=== PATIENT | female | born 1955 | race Caucasian/White ===

== ENCOUNTER 2016-12-12 13:53 | Inpatient (IN) | payer OTHER ==
[~2016-12-12] VITALS: Ht 154.9 cm; Wt 59.0 kg
[2016-12-12] MEDS ORDERED: LEVE500T9 PO (14:10)
[2016-12-12] MEDS ORDERED: PANT40TA2 PO (14:24)
[2016-12-12] MEDS ORDERED: LEVO125T8 PO (14:24)
--- NOTE | 2016-12-12 14:26 | NUR ---
DR WADSWORTH AT BEDSIDE FOR EVALUATION. SPEECH IS CLEAR, ORIENTED X 4, MOVING ALL EXTREMITIES ON COMMAND.
[2016-12-12] MEDS ORDERED: KETOROLAC TROMETHAMINE 15 MG INJ IV ONE (14:30)
[2016-12-12] MEDS ORDERED: KETOROLAC TROMETHAMINE 15 MG INJ ONE (14:44)
[2016-12-12 14:55] LABS: BASOPHILS % (AUTO) 0.5 % (0.0-2.0); EOSINOPHILS # (AUTO) 0.1 K/uL (0.0-0.7); EOSINOPHILS % (AUTO) 1.9 % (0.0-7.0); HEMATOCRIT 38.7 % (37.0-47.0); LYMPHOCYTES # (AUTO) 1.7 K/uL (0.8-4.8); LYMPHOCYTES % (AUTO) 30.1 % (20.5-51.5); MEAN CORPUSCULAR HEMOGLOBIN 27.8 uug (27.0-31.0); MEAN CORPUSCULAR HGB CONC 34 g/dL (32.0-37.0); MEAN CORPUSCULAR VOLUME 82.8 fL (81.0-99.0); MONOCYTES # (AUTO) 0.3 K/uL (0.1-1.30); MONOCYTES % (AUTO) 4.8 % (0.0-11.0); NEUTROPHILS # (AUTO) 3.6 K/uL (1.8-8.9); NEUTROPHILS % (AUTO) 62.7 % (38.5-71.5); PLATELET COUNT (AUTO) 353 K/uL (150-450); RED BLOOD CELL COUNT(AUTO) 4.67 MIL/uL (4.20-5.40); RED CELL DISTRIBUTION WIDTH 13.2 % (11.5-14.5); WHITE BLOOD COUNT (AUTO) 5.7 K/uL (4.0-11.2)
[2016-12-12 14:58] LABS: CALCIUM 9.1 mg/dL (8.5-10.1); CREATININE 0.8 mg/dL (0.6-1.3); POTASSIUM 3.8 mmol/L (3.5-5.1)
[2016-12-12] MEDS ORDERED: IOHEXOL 350 100 ML INFUS..BTL ONE (15:02)
[2016-12-12] MEDS ORDERED: IV NORMAL SALINE 250 ML IV ONE (15:02)
[2016-12-12 15:04] LABS: ALBUMIN 3.4 g/dL (3.4-5.0); BILIRUBIN,DIRECT 0.1 mg/dL (0.0-0.2); BILIRUBIN,TOTAL 0.7 mg/dL (0.2-1.0); TOTAL PROTEIN, SERUM 7.2 g/dL (6.4-8.2)
--- NOTE | 2016-12-12 15:15 | NUR ---
PT SIGNED CONSENT FOR IV CONTRAST, PLACED IN THE CHART.
--- NOTE | 2016-12-12 16:08 | NUR ---
PT BACK FROM CT. DENIES PAIN.NO SEIZURE ACTIVITY NOTED SOFAR.
--- NOTE | 2016-12-12 18:00 | NUR ---
ADMITTED FROM HOME VIA ER WITH ADMITTING DX OF SEIZURE ALERT AND ORIENTED X3, ABLE TO PARTICIPATE WITH ADMISSION ASSESSMENT. STILL C/O SLIGHT HEADACHE TOLERABLE MORE ON THE LEFT. SEEN BY DR KENYON. ROUTINE ADMISSION ASSESSMENT INITIATED
[2016-12-12 18:10] VITALS: BP 123/75
[2016-12-12] MEDS ORDERED: MORPHINE SULFATE 2 MG/1 ML DISP.SYRIN IV PRN (19:30)
[2016-12-12] MEDS ORDERED: KETOROLAC TROMETHAMINE 15 MG INJ IVP PRN (19:30)
[2016-12-12] MEDS ORDERED: ONDANSETRON 4 MG/2 ML VIAL IV PRN (19:30)
[2016-12-12] MEDS ORDERED: ZOLPIDEM 5 MG TABLET PO PRN (19:30)
[2016-12-12] MEDS ORDERED: MAGNESIUM HYDROXIDE 30 ML LIQUID UDC PO PRN (19:30)
--- NOTE | 2016-12-12 20:19 | NUR ---
Patient in bed, no SOB denies chest pain. Alert & oriented, c/o minimal headache requesting Tylenol. No signs of seizures noted. Sinus rhythm on the monitor. Vital signs are WNL.
[2016-12-12] MEDS: ACETAMINOPHEN 325 MG TABLET PO PRN (20:46)
[2016-12-12] MEDS: DOCUSATE SODIUM 100 MG CAPSULE PO SCH (20:47)
[2016-12-12 20:55] VITALS: BP 131/70
[2016-12-12] MEDS ORDERED: LEVETIRACETAM 500 MG TABLET PO SCH (22:00)
[2016-12-13 00:19] VITALS: BP 92/54
[2016-12-13] MEDS: ACETAMINOPHEN 325 MG TABLET PO PRN ×4 (04:17→22:29)
--- NOTE | 2016-12-13 04:33 | NUR ---
Patient resting in bed, still c/o mild headache. Administered Tylenol PRN as ordered and provided comfort measures to relieve headache. Seizure precaution observed at all times. Call light within reach, bed in low position. Will continue to monitor.
[2016-12-13 05:12] VITALS: BP 104/60
--- NOTE | 2016-12-13 06:45 | NUR ---
Patient refused to take 0700 scheduled medications Protonix and Synthroid. Patient stated "I usually take those medications together with Keppra around 9am or 10am". Endorsed schedule time change of medications to the AM shift RN.
[2016-12-13] MEDS ORDERED: PANTOPRAZOLE SODIUM 40 MG TABLET.DR PO SCH ×2 (07:00→09:00)
[2016-12-13] MEDS ORDERED: LEVOTHYROXINE SODIUM 125 MCG TABLET PO SCH ×2 (07:00→10:00)
--- NOTE | 2016-12-13 07:05 | NUR ---
PATIENT RECEIVED IN ROOM RESTING WITH EYES CLOSED. SR ON DIRECTOR OF CLINICAL APPLICATIONS. RESPIRATIONS EVEN AND UNLABORED. FALL PRECAUTIONS IN PLACE.
[2016-12-13 09:14] LABS: CALCIUM 8.5 mg/dL (8.5-10.1); MAGNESIUM 2.3 mg/dL (1.8-2.4); PHOSPHOROUS 4.2 mg/dL (2.5-4.9); POTASSIUM 3.9 mmol/L (3.5-5.1)
[2016-12-13 09:23] LABS: THYROID STIMULATING HORMONE 5.153 mIU/mL (0.358-3.740)
--- NOTE | 2016-12-13 09:40 | NUR ---
PATIENT REQUESTED SYNTHROID TO BE GIVEN AT THIS TIME. STATES SHE IS PARANOIC AND SHE NEEDS TO SEE THE MEDICATIONS NAME AND DOSE SO SHE CAN TRUST WE ARE GIVING HER THE RIGHT MEDICATION. STATES SHE WANTS HER KEPPRA AND PROTONIX EXACTLY 30 MIN AFTER SYNTHROID.
[2016-12-13] MEDS: LEVOTHYROXINE SODIUM 125 MCG TABLET PO SCH (09:45)
[2016-12-13 09:58] LABS: BASOPHILS # (AUTO) 0.1 K/uL (0.0-0.2); BASOPHILS % (AUTO) 1.2 % (0.0-2.0); EOSINOPHILS # (AUTO) 0.2 K/uL (0.0-0.7); EOSINOPHILS % (AUTO) 4.2 % (0.0-7.0); HEMATOCRIT 39.3 % (37.0-47.0); LYMPHOCYTES # (AUTO) 2.3 K/uL (0.8-4.8); LYMPHOCYTES % (AUTO) 45.2 % (20.5-51.5); MEAN CORPUSCULAR HEMOGLOBIN 27.8 uug (27.0-31.0); MEAN CORPUSCULAR HGB CONC 33 g/dL (32.0-37.0); MEAN CORPUSCULAR VOLUME 83.9 fL (81.0-99.0); MONOCYTES # (AUTO) 0.3 K/uL (0.1-1.30); MONOCYTES % (AUTO) 5.4 % (0.0-11.0); NEUTROPHILS # (AUTO) 2.2 K/uL (1.8-8.9); PLATELET COUNT (AUTO) 347 K/uL (150-450); RED BLOOD CELL COUNT(AUTO) 4.68 MIL/uL (4.20-5.40); RED CELL DISTRIBUTION WIDTH 13.5 % (11.5-14.5); WHITE BLOOD COUNT (AUTO) 5.1 K/uL (4.0-11.2)
[2016-12-13] MEDS ORDERED: LEVETIRACETAM 500 MG TABLET PO SCH (10:00)
[2016-12-13] MEDS: PANTOPRAZOLE SODIUM 40 MG TABLET.DR PO SCH (10:14)
[2016-12-13 11:42] VITALS: BP 112/66
--- NOTE | 2016-12-13 11:50 | NUR ---
PATIENT IS HYPERVERBAL, STATES SHE DOES NOT WANT TO BE ALONE AND THAT WE ARE PROVIDING A GOOD CARE THAT SHE FEELS SAFE AND SECURE HERE.
--- NOTE | 2016-12-13 13:00 | NUR ---
PATIENT SEEN BY DR. FERNANDEZ.
[2016-12-13 15:25] VITALS: BP 113/71
--- NOTE | 2016-12-13 17:50 | NUR ---
PATIENT IS CRYING AND STATES FEELING SCARED THAT WE NEED TO CHECK ON HER TO MAKE SURE SHE IS OK. VSS. TEACHING AND REDIRECTION DONE.
[2016-12-13] MEDS: OXCARBAZEPINE 300 MG TABLET PO SCH (20:01)
--- NOTE | 2016-12-13 20:01 | NUR ---
SITTING ON BED ABLE TO MAKE NEEDS KNOWN. EXPLAINED NEW MEDICATION PRESCRIBED TRILEPTAL. STATED: "I THINK I WAS MISUNDERSTOOD EARLIER. WHAT I MEANT TO SAY IS IM SCARED WITH MY SITUATION RIGHT NOW COZ EARLIER I BLANKED OUT, ITS NOT THAT IM SCARED THAT IM ALONE. IM JUST SCARED ABOUT MY SITUATION RIGHT NOW THAT HAVING SEIZURES IS UNCONTROLLABLE THAT IT CAN HAPPEN ANYTIME. I DONT WANT TO TAKE THAT FOR NOW." PROVIDED REASSURANCE. NEEDS ATTENDED. CALL LIGHT WITHIN REACH. WILL CONTINUE TO MONITOR
[2016-12-13 20:24] VITALS: BP 121/77
[2016-12-13] MEDS: DOCUSATE SODIUM 100 MG CAPSULE PO SCH (21:00)
[2016-12-13] MEDS: LEVETIRACETAM 500 MG TABLET PO SCH (22:00)
--- NOTE | 2016-12-13 22:00 | NUR ---
STATED SHE NOW FEELS WEIRD AGAIN. " I FEEL WEIRD AGAIN, HOW I WISH I CAN EXPLAIN IT TO YOU. BUT IM GLAD IM HERE CAUSE I FEEL SAFE." WILL CONTINUE TO MONITOR
[2016-12-14 05:48] VITALS: BP 110/60
--- NOTE | 2016-12-14 06:13 | NUR ---
STATED SHE WAS ABLE TO FINALLY SLEEP LAST NIGHT. ONCE AGAIN EXPLAINED THE REASON ABOUT HER NEW MEDICATION TRILEPTAL BUT STATED THAT SHE WONT TAKE NEW MEDICATIONS UNTIL SHE SPEAKS WITH THE DOCTOR. WILL ENDORSE TO NEXT SHIFT. ALSO STATED THAT SHE DOESNT WANT TO TAKE HER SYNTHROID ORDERED, STATED SHE USUALLY TAKES IT AT 0930, NEEDS ATTENDED. CALL LIGHT WITHIN REACH
[2016-12-14] MEDS: LEVOTHYROXINE SODIUM 125 MCG TABLET PO SCH (07:00)
--- NOTE | 2016-12-14 07:31 | NUR ---
PATIENT RECEIVED IN ROOM RESTING WITH EYES CLOSED IN NO ACUTE DISTRESS. RESPIRATIONS EVEN AND UNLABORED. FALL PRECAUTIONS IN PLACE.
[2016-12-14] MEDS: PANTOPRAZOLE SODIUM 40 MG TABLET.DR PO SCH (09:52)
[2016-12-14] MEDS: OXCARBAZEPINE 300 MG TABLET PO SCH ×2 (09:52→17:27)
[2016-12-14] MEDS: LEVETIRACETAM 500 MG TABLET PO SCH ×2 (09:52→21:45)
[2016-12-14] MEDS: ACETAMINOPHEN 325 MG TABLET PO PRN ×2 (10:02→22:32)
[2016-12-14 11:50] VITALS: BP 115/65
[2016-12-14 16:00] VITALS: BP_SYST 110; BP_SYST 129; BP_DIAS 66; BP_DIAS 72
--- NOTE | 2016-12-14 19:30 | NUR ---
SITTING ON BED COMFORTABLY, NO ACUTE DISTRESS NOTED. ABLE TO MAKE NEEDS KNOWN. STATED SHE DIDNT HAVE ANY BM FOR FEW DAYS, CONVINCED TO TAKE COLACE AT 2100 ORDERED, AGREED. WILL OFFER PRUNE JUICE WELL. NEEDS ATTENDED. CALL LIGHT WITHIN REACH. WILL CONTINUE TO MONITOR
[2016-12-14] MEDS: DOCUSATE SODIUM 100 MG CAPSULE PO SCH (20:57)
[2016-12-14] MEDS: ATORVASTATIN 20 MG TABLET PO SCH (20:57)
[2016-12-14 21:40] VITALS: BP 113/55
--- NOTE | 2016-12-14 22:29 | NUR ---
REQUESTED TO WALK AROUND THE UNIT TO HELP HER SLEEP, ASSISTED WITH STAFF.
[2016-12-15 05:17] VITALS: BP 109/52
--- NOTE | 2016-12-15 06:14 | NUR ---
SLEPT INTERMITTENTLY DURING THE SHIFT. NO ACUTE DISTRESS NOTED. STILL PREFERS TO TAKE SYNTHROID AT 0930, WILL TRY TO CALL PHARMACY IN REGARDS TO PATIENT'S REQUEST. ALL DUE MEDS GIVEN ORDERED. KEPT COMFORTABLE AT ALL TIMES. NEEDS ATTENDED. CALL LIGHT WITHIN REACH
--- NOTE | 2016-12-15 07:00 | NUR ---
pt refuses to take Synthroid at 0700. Let the pharmacist know. Pt is laying in bed comfortably. No s/s of respiratory distress noted. No pain noted. Iv intact/patent. All safety needs are met. Will continue to monitor.
[2016-12-15 08:51] LABS: ALBUMIN 3.1 g/dL (3.4-5.0); BILIRUBIN,TOTAL 0.4 mg/dL (0.2-1.0); CALCIUM 8.5 mg/dL (8.5-10.1); CREATININE 0.9 mg/dL (0.6-1.3); PHOSPHOROUS 3.9 mg/dL (2.5-4.9); TOTAL PROTEIN, SERUM 6.5 g/dL (6.4-8.2)
[2016-12-15] MEDS: LEVOTHYROXINE SODIUM 125 MCG TABLET PO SCH (09:32)
[2016-12-15] MEDS: PANTOPRAZOLE SODIUM 40 MG TABLET.DR PO SCH (10:14)
[2016-12-15] MEDS: LEVETIRACETAM 500 MG TABLET PO SCH ×2 (10:14→22:10)
[2016-12-15] MEDS: OXCARBAZEPINE 300 MG TABLET PO SCH ×2 (10:14→17:01)
[2016-12-15] MEDS: ACETAMINOPHEN 325 MG TABLET PO PRN ×3 (10:15→23:36)
[2016-12-15 11:01] LABS: WHITE BLOOD COUNT (AUTO) 5.4 K/uL (4.0-11.2)
[2016-12-15 11:02] LABS: HEMATOCRIT 37.2 % (37.0-47.0); HEMOGLOBIN 12.3 g/dL (12.0-16.0); LYMPHOCYTES % (AUTO) 36.7 % (20.5-51.5); MEAN CORPUSCULAR HEMOGLOBIN 27.8 uug (27.0-31.0); MEAN CORPUSCULAR HGB CONC 33 g/dL (32.0-37.0); MEAN CORPUSCULAR VOLUME 84.1 fL (81.0-99.0); NEUTROPHILS % (AUTO) 51.8 % (38.5-71.5); PLATELET COUNT (AUTO) 330 K/uL (150-450); RED BLOOD CELL COUNT(AUTO) 4.42 MIL/uL (4.20-5.40); RED CELL DISTRIBUTION WIDTH 14.6 % (11.5-14.5)
[2016-12-15 11:03] LABS: BASOPHILS % (AUTO) 0.8 % (0.0-2.0); EOSINOPHILS # (AUTO) 0.2 K/uL (0.0-0.7); EOSINOPHILS % (AUTO) 3.3 % (0.0-7.0); MONOCYTES # (AUTO) 0.4 K/uL (0.1-1.30); MONOCYTES % (AUTO) 7.4 % (0.0-11.0); NEUTROPHILS # (AUTO) 2.8 K/uL (1.8-8.9)
[2016-12-15 12:00] VITALS: BP 117/67
--- NOTE | 2016-12-15 14:23 | NUR ---
PT IS ANXIOUS STATES THAT SHE DOES NOT WANT TO BE DISCHARGED BECAUSE SHE FEELS DIZZY. ADVISED THE PT NOT TO AMBULATE W/O ASSISTANCE AND CALL THE NURSE ONCE FEELING LIKE GOING TO BATHROOM. BED ALARM IS ON, CALL LIGHT WITHIN PT'S REACH. PATIENT SPOKE TO C/M, DR. KENYON, CHARGE NURSE. PATIENT STATES THAT SHE FELT "NAUSEOUS AND WAS VOMITING ALL NIGHT. ONCE ASKED IF PT WOULD LIKE TO RECEIVE MEDICATION FOR NAUSEA, PT REFUSED.
--- NOTE | 2016-12-15 14:27 | NUR ---
[T IS REMINDED MULTIPLE TIMES TO CALL THE NURSE ONCE WANTING TO AMBULATE. Addendum: 12/15/16 at 1431 by BREEZY CAMPOS RN *PATIENT
[2016-12-15 16:00] VITALS: BP 116/66
--- NOTE | 2016-12-15 17:20 | NUR ---
The patient refused to be discharged this morning back home, stating that she is unable to ambulate. PT and OT were asked and according to them, the patient is fully independent and functional and she could be discharged back home. The patient stated that that was yesterday and she suddenly can not walk today. Informed her that all of her labs were good and we can not justify her staying in an acute setting. Offered to call her sister but she refused. Asked if she would like to see a psychiatrist but she was very offended. Offered her a nursing facility but she initially refused. She called this machine shorthand reporter back later and stated that she would like to go to a nursing facility. Faxed her information to [facility] and [facility] because they have an [place] [facility] contract. [facility] do not have any female beds available. Susanne from [facility] confirmed that they will admit the patient under intermediate care today. The patient will be discharged to [facility] [ ; [address] [place] [address]] via [facility] [ ].
--- NOTE | 2016-12-15 19:24 | NUR ---
PT IS LAYING IN BED COMFORTABLY. NO S/S OF RESPIRATORY DISTRESS NOTED. NO PAIN NOTED. IV INTACT/PATENT. ALL SAFETY NEEDS ARE MET. DRESSING INTACT. PT IS ENCOURAGED TO USE INCENTIVE SPIROMETER, ADVISED NOC NURSE ABOUT 1/2 HR SITZ BATH TID ORDER. NO NAUSEA PRESENT. V/S WNL. Addendum: 12/15/16 at 1929 by BREEZY CAMPOS RN NOTE IS FOR THE WRONG PATIENT.
--- NOTE | 2016-12-15 19:29 | NUR ---
PT IS SITTING IN BED COMFORTABLY. NO DIZZINESS IS NOTED. NO S/S OF RESPIRATORY DISTRESS NOTED. NO PAIN NOTED. ALL SAFETY NEEDS ARE MET. PT IS ADVISED TO CALL THE NURSE IN CASE OF AMBULATING. THE BED ALARM IS ON. CALLBELL IS WITHIN REACH./
--- NOTE | 2016-12-15 19:53 | NUR ---
PATIENT SITTING ON BED, C/O OF PAIN IN THE HANDS ON HEADACHE ON THE LEFT. SHE STATED SHE ALREADY TOOK TYLENOL AND SHE DOESNOT WANT TO TAKE ANY PAIN MEDICATION AT THIS TIME. SHE STATED SHE IS DOING EXERCISE WITH SOFT BALL WHICH HELPS MILDLY. NO EPISODES OF SEIZURE NOTED. NO C/O OF DIZZINESS AT THIS TIME. BED ALARM ON, CALL LIGHT IN REACH. RENMINDED HER TO USE CALL LIGHT IN NEED
[2016-12-15 20:00] VITALS: BP 110/63
[2016-12-15] MEDS: ATORVASTATIN 20 MG TABLET PO SCH (21:16)
[2016-12-15] MEDS: DOCUSATE SODIUM 100 MG CAPSULE PO SCH (21:16)
--- NOTE | 2016-12-15 23:40 | NUR ---
PATIENT BROUGHT IN FROM ER VIA STRETCHER, ADMITTED TO TELE WITH DX UNCONTROLLED DIABETES. PATIENT IN STABLE CONDITION . NO C/O OF PAIN OR BLURRED VISION NOTED AT THIS TIME. IV FLUID INFUSING ORDERED. WILL CONTINUE TO MONITOR. Addendum: 12/16/16 at 0151 by DOMENICA BRUCE RN PLEASE DISREGARD ABOVE DOCUMENTATION . WRONG PATIENT
[2016-12-16 04:25] VITALS: BP 113/62
--- NOTE | 2016-12-16 05:36 | NUR ---
PATIENT SLEEPING COMFORTABLE . TYLENOL GIVEN DURING THE SHIFT ON C/O HEADACHE. NO C/O DIZZINESS . PATIENT MAY D/C TODAY. SAFETY PRECAUTIONS OBSERVED. NO EPISODES OF SEIZURE. SEIZURE PRECAUTIONS OOBSERVED. CALL LIGHT IN REACH
[2016-12-16] MEDS: LEVOTHYROXINE SODIUM 125 MCG TABLET PO SCH (08:44)
[2016-12-16] MEDS ORDERED: MULTIVITAMINS,THERAPEUTIC TABLET PO SCH (09:00)
[2016-12-16] MEDS: OXCARBAZEPINE 300 MG TABLET PO SCH (09:22)
[2016-12-16] MEDS: LEVETIRACETAM 500 MG TABLET PO SCH (09:22)
[2016-12-16] MEDS: PANTOPRAZOLE SODIUM 40 MG TABLET.DR PO SCH (09:22)
[2016-12-16 11:32] VITALS: BP 124/66
[2016-12-16] MEDS ORDERED: IBUP-1481 PO (12:43)
[2016-12-16] MEDS ORDERED: MAGN400O4 PO (12:43)
[2016-12-16] MEDS ORDERED: ATOR20TA PO (12:43)
[2016-12-16] MEDS ORDERED: MULT-24 PO (12:43)
[2016-12-16] MEDS ORDERED: LEVE500T9 PO (12:43)
[2016-12-16] MEDS ORDERED: OXCA300T4 PO (12:43)
[2016-12-16] MEDS ORDERED: Docusate Sodium PO (12:43)
[2016-12-16] MEDS ORDERED: Zolpidem Tartrate PO (12:43)
[2016-12-16] MEDS ORDERED: Acetaminophen PO (12:43)
--- NOTE | 2016-12-16 14:41 | NUR ---
ALL HOME INSTRUCTIONS REVIEWED WITH PT. DR. KENYON IN EARLIER TO DISCUSS DISCHARGE, PLAN OF CARE AND REHAB WITH PT. IV D/C'D. AWAITING AMBULANCE.
[2016-12-16 15:30] VITALS: BP 117/69
--- NOTE | 2016-12-16 16:00 | NUR ---
REPORT CALLED TO [facility]--JOHNATHAN Coleman. DISCHARGED TO AMBULANCE ATTENDENTS/[facility].
== END 2016-12-16 16:10 | DRG 54 ==
LOC: ER 13:55 → TELE 17:51 → MED 12-13 19:27
PROVIDERS: ADMIT Internal Medicine; ATTEND Internal Medicine
DX: G43.909 Migraine, unspecified, not intractable, without status migrainosus (principal); I10 Essential (primary) hypertension; E78.5 Hyperlipidemia, unspecified; T42.6X5A Adverse effect of other antiepileptic and sedative-hypnotic drugs, initial encounter; Y92.009 Unspecified place in unspecified non-institutional (private) residence as the place of occurrence of the external cause; G40.909 Epilepsy, unspecified, not intractable, without status epilepticus; E03.9 Hypothyroidism, unspecified; F41.9 Anxiety disorder, unspecified; K21.9 Gastro-esophageal reflux disease without esophagitis; F32.9 Major depressive disorder, single episode, unspecified; R53.1 Weakness; G89.29 Other chronic pain; Z79.899 Other long term (current) drug therapy; Z82.3 Family history of stroke
CPT/HCPCS: 36415; 70030-TC; 70496; 71010; 83735; 84100; 84443; 85025; 85730; 93005; 97001; 97003; A4663; J1885; J7050; Q9967

== ENCOUNTER 2016-12-25 10:18 | Inpatient (IN) | payer OTHER ==
[~2016-12-25] VITALS: Ht 149.9 cm; Wt 52.2 kg
[~2016-12-25 10:18] MED LIST: ATOR20TA PO; Acetaminophen PO; Docusate Sodium PO; IBUP-1481 PO; LEVE500T9 PO; LEVO125T8 PO; MAGN400O4 PO; MULT-24 PO; OXCA300T4 PO; PANT40TA2 PO; Zolpidem Tartrate PO
--- NOTE | 2016-12-25 10:35 | NUR ---
PT WAS RECENTLY DISCHARGE FROM INPATIENT. PT STATES THAT SHE HAS HAD HER EPILEPSY MEDICATION CHANGED FROM KEPPRA TO TRILEPTAL. CURRENTLY TAKING TRILEPTAL X 1 WEEK, PT STATES OF FEELING +N/V SINCE LAST NIGHT, GENERALIZED WEAKNESS, DOWD. TOOK MORNING DOSE OF TRILEPTAL ORDERED BY MD. WCTM PT AT THIS TIME. WAITING FOR MD TO PERFORM MSE
--- NOTE | 2016-12-25 10:36 | NUR ---
AT BEDSIDE PERFORMING MSE
--- NOTE | 2016-12-25 10:56 | NUR ---
UNABLE TO PERFORM EKG AT THIS TIME. PT REQUEST TO SPEAK TO MD. BRADSHAW AWARE
[2016-12-25] MEDS ORDERED: ONDANSETRON 4 MG/2 ML VIAL IV ONE (11:00)
[2016-12-25] MEDS ORDERED: IV NORMAL SALINE 500 ML BAG IV ONE (11:00)
[2016-12-25] MEDS ORDERED: ONDANSETRON 4 MG/2 ML VIAL ONE (11:01)
[2016-12-25] MEDS ORDERED: NITROGLYCERIN 0.4 MG/TAB BOTTLE SL ONE ×2 (11:15→11:45)
[2016-12-25] MEDS ORDERED: CLOPIDOGREL 75 MG TABLET PO ONE (11:15)
[2016-12-25] MEDS ORDERED: CLOPIDOGREL 75 MG TABLET ONE (11:45)
--- NOTE | 2016-12-25 11:52 | NUR ---
PT REFUSED TO TAKE NITRO UNLESS MD SPEAKS TO PT. MADE AWARE
--- NOTE | 2016-12-25 12:04 | NUR ---
CXR pending,nurse will call once done with the procedure.
[2016-12-25 12:31] LABS: CALCIUM 8.9 mg/dL (8.5-10.1); CREATININE 0.9 mg/dL (0.6-1.3); POTASSIUM 3.9 mmol/L (3.5-5.1)
[2016-12-25 12:38] LABS: BASOPHILS # (AUTO) 0.1 K/uL (0.0-0.2); BASOPHILS % (AUTO) 1.8 % (0.0-2.0); EOSINOPHILS # (AUTO) 0.3 K/uL (0.0-0.7); EOSINOPHILS % (AUTO) 4.1 % (0.0-7.0); HEMATOCRIT 42.2 % (37.0-47.0); HEMOGLOBIN 14.1 g/dL (12.0-16.0); LYMPHOCYTES # (AUTO) 1.6 K/uL (0.8-4.8); MEAN CORPUSCULAR HEMOGLOBIN 27.9 uug (27.0-31.0); MEAN CORPUSCULAR HGB CONC 33 g/dL (32.0-37.0); MEAN CORPUSCULAR VOLUME 83.6 fL (81.0-99.0); MONOCYTES # (AUTO) 0.4 K/uL (0.1-1.30); MONOCYTES % (AUTO) 6.9 % (0.0-11.0); NEUTROPHILS # (AUTO) 3.7 K/uL (1.8-8.9); NEUTROPHILS % (AUTO) 61.2 % (38.5-71.5); PLATELET COUNT (AUTO) 331 K/uL (150-450); RED CELL DISTRIBUTION WIDTH 13.5 % (11.5-14.5); WHITE BLOOD COUNT (AUTO) 6.1 K/uL (4.0-11.2)
[2016-12-25 12:40] LABS: RED BLOOD CELL COUNT(AUTO) 5.05 MIL/uL (4.20-5.40)
[2016-12-25 12:44] LABS: ALBUMIN 3.8 g/dL (3.4-5.0); BILIRUBIN,DIRECT 0.1 mg/dL (0.0-0.2); BILIRUBIN,TOTAL 0.5 mg/dL (0.2-1.0); TOTAL PROTEIN, SERUM 8.2 g/dL (6.4-8.2)
[2016-12-25] MEDS ORDERED: MECLIZINE HCL 25 MG TABLET ONE (12:54)
--- NOTE | 2016-12-25 12:55 | NUR ---
PT IS HIGHLY SOMATIC, CONSTANT RE-DIRECTION, ENCOURAGEMENT, SUPPORT GIVEN. PT IS HYPERVERBAL, SLIGHTLY ANXIOUS AT THIS TIME. WCTM PT. WAITING FOR FURTHER PLAN OF CARE
[2016-12-25] MEDS ORDERED: MECLIZINE HCL 25 MG TABLET PO ONE (13:00)
--- NOTE | 2016-12-25 14:40 | NUR ---
REPORT GIVEN TO HERBER, AWARE OF PT'S CURRENT CONDITION. WILL CONTINUE PLAN OF CARE
--- NOTE | 2016-12-25 15:15 | NUR ---
Received this 61 yo female from ER per win, with the chief complaint/diagnosis of chest pain. Transferred to bed comfortably. Routine admission care rendered. Saline lock to right thumb g 20 intact. Awake, alert, oriented x 4. Limited movement of RUE, generally weak, dizzy. Placed on tele, SR. Dr. Payton informed of admission.
[2016-12-25 15:36] VITALS: BP 130/75
[2016-12-25] MEDS ORDERED: OXCA300T4 PO (16:27)
[2016-12-25] MEDS ORDERED: LEVE250T2 PO (16:27)
[2016-12-25] MEDS ORDERED: Medication Not On Formulary EA ([Acetaminophen] (Tylenol) 650 MG) PO PRN (17:00)
[2016-12-25] MEDS ORDERED: OXCARBAZEPINE 300 MG TABLET PO SCH ×2 (17:00→17:45)
[2016-12-25] MEDS ORDERED: LEVETIRACETAM 250 MG TABLET PO SCH (17:00)
[2016-12-25] MEDS ORDERED: ACETAMINOPHEN 325 MG TABLET PO PRN (17:15)
[2016-12-25] MEDS: ACETAMINOPHEN 325 MG TABLET PO PRN ×2 (17:51→23:37)
--- NOTE | 2016-12-25 18:50 | NUR ---
Not in distress, kept comfortable.
[2016-12-25 20:00] VITALS: BP 119/71
--- NOTE | 2016-12-25 20:00 | NUR ---
RECEIVED PATIENT AWAKE IN BED. A/O X4. DENIES PAIN OR DISCOMFORT AT THIS TIME. NO RESP. DISTRESS NOTED. HEPLOCK INTACT AND NOTED TO RIGHT THUMB #20 GAUGE. ON TELE SR. CALL LIGHT IN REACH. ALL NEEDS ATTENDED. WILL CONTINUE TO MONITOR.
[2016-12-25] MEDS: DOCUSATE SODIUM 100 MG CAPSULE PO SCH (20:58)
[2016-12-25] MEDS: LEVETIRACETAM 250 MG TABLET PO SCH ×2 (20:59→21:00)
[2016-12-25] MEDS: ATORVASTATIN 20 MG TABLET PO SCH (20:59)
[2016-12-25] MEDS: OXCARBAZEPINE 300 MG TABLET PO SCH (20:59)
[2016-12-25] MEDS ORDERED: Medication Not On Formulary EA ([Docusate Sodium] (Colace) 200 MG) PO SCH (21:00)
[2016-12-25] MEDS: ONDANSETRON 4 MG/2 ML VIAL IV PRN (23:36)
[2016-12-26 00:05] VITALS: BP 121/60
[2016-12-26 04:00] VITALS: BP 114/52
--- NOTE | 2016-12-26 06:11 | NUR ---
PATIENT ASLEEP IN BED. VSS. ON TELE SR. NO S/S OF ANY PAIN OR DISCOMFORT. NO RESP. DISTRESS NOTED. BED ALARM ON FOR SAFETY. CALL LIGHT IN REACH. ALL NEEDS ATTENDED. WILL CONTINUE TO MONITOR.
[2016-12-26] MEDS: LEVOTHYROXINE SODIUM 125 MCG TABLET PO SCH (08:38)
[2016-12-26 08:46] LABS: BASOPHILS % (AUTO) 0.8 % (0.0-2.0); EOSINOPHILS # (AUTO) 0.2 K/uL (0.0-0.7); EOSINOPHILS % (AUTO) 5.4 % (0.0-7.0); HEMATOCRIT 38.1 % (37.0-47.0); HEMOGLOBIN 12.6 g/dL (12.0-16.0); LYMPHOCYTES # (AUTO) 1.3 K/uL (0.8-4.8); LYMPHOCYTES % (AUTO) 29.2 % (20.5-51.5); MEAN CORPUSCULAR HEMOGLOBIN 27.8 uug (27.0-31.0); MEAN CORPUSCULAR HGB CONC 33 g/dL (32.0-37.0); MEAN CORPUSCULAR VOLUME 83.8 fL (81.0-99.0); MONOCYTES # (AUTO) 0.4 K/uL (0.1-1.30); MONOCYTES % (AUTO) 8.7 % (0.0-11.0); NEUTROPHILS # (AUTO) 2.6 K/uL (1.8-8.9); NEUTROPHILS % (AUTO) 55.9 % (38.5-71.5); PLATELET COUNT (AUTO) 325 K/uL (150-450); RED BLOOD CELL COUNT(AUTO) 4.54 MIL/uL (4.20-5.40); RED CELL DISTRIBUTION WIDTH 13.8 % (11.5-14.5); WHITE BLOOD COUNT (AUTO) 4.5 K/uL (4.0-11.2)
[2016-12-26] MEDS: MULTIVITAMINS,THERAPEUTIC TABLET PO SCH (09:15)
[2016-12-26] MEDS: PANTOPRAZOLE SODIUM 40 MG TABLET.DR PO SCH (09:16)
[2016-12-26] MEDS: OXCARBAZEPINE 300 MG TABLET PO SCH ×2 (09:16→20:42)
[2016-12-26] MEDS: ACETAMINOPHEN 325 MG TABLET PO PRN ×3 (09:17→23:10)
[2016-12-26] MEDS: LEVETIRACETAM 250 MG TABLET PO SCH (09:17)
[2016-12-26] MEDS: ONDANSETRON 4 MG/2 ML VIAL IV PRN (09:18)
[2016-12-26 09:30] LABS: BILIRUBIN,TOTAL 0.6 mg/dL (0.2-1.0); CALCIUM 8.6 mg/dL (8.5-10.1); PHOSPHOROUS 3.8 mg/dL (2.5-4.9); POTASSIUM 3.9 mmol/L (3.5-5.1)
[2016-12-26 09:31] LABS: ALBUMIN 3.3 g/dL (3.4-5.0); MAGNESIUM 1.8 mg/dL (1.8-2.4); TOTAL PROTEIN, SERUM 6.8 g/dL (6.4-8.2)
[2016-12-26] MEDS ORDERED: IV NS 1000 ML 1,000 ML IV PRN (09:45)
[2016-12-26 12:00] VITALS: BP 107/68
[2016-12-26 15:40] VITALS: BP 102/59
--- NOTE | 2016-12-26 17:23 | NUR ---
PT AWAKE IN BED, NO ACUTE DISTRESS. DINNER AT BEDSIDE, IV INTACT AND INFUSING WELL. PT VERY ANXIOUS AND WORRIED ABOUT POSSIBLE DISCHARGE EVEN THOUGH CARDIO CONSULT IS PENDING. PT EDUCATED ON RELAXATION TECHNIQUES. ALL SAFETY AND COMFORT MEASURES MAINTAINED THROUGHOUT SHIFT, CALL LIGHT IN REACH
--- NOTE | 2016-12-26 19:20 | NUR ---
Received report from ANGELA Lara. Pt currently awake and alert, conversational and follows commands. Denies SOB and chest pain, all labs 2Decho are normal except Na which is 129mg/dl.Pt is ambulatory and can go to restroom by herself, with minimal supervision at times.
--- NOTE | 2016-12-26 20:30 | NUR ---
Spend a good amount of time with the pt. Pt likes to converse. Dr. Spring (window maker) came in and speak to the pt.
[2016-12-26] MEDS: ATORVASTATIN 20 MG TABLET PO SCH (20:42)
[2016-12-26] MEDS: DOCUSATE SODIUM 100 MG CAPSULE PO SCH (20:42)
[2016-12-26 21:22] VITALS: BP 100/55
--- NOTE | 2016-12-26 22:00 | NUR ---
Pt called multiple times and wanting to speak to someone, feels comforted every after the end of conversation. Dr. Spring discontinued her IV fluid, pt was pleased about it.
--- NOTE | 2016-12-26 23:30 | NUR ---
Tylenol 650mg/po given per pt's request for sleep, denies any pain.
--- NOTE | 2016-12-27 02:00 | NUR ---
Pt resting comfortably. Pt gets easily awakened with simple noise.
--- NOTE | 2016-12-27 05:00 | NUR ---
Resting comfortably.Breathing normally.
[2016-12-27 06:41] VITALS: BP 123/68
--- NOTE | 2016-12-27 07:20 | NUR ---
Report to ANGELA Dempsey. Pt remained asleep.
--- NOTE | 2016-12-27 08:00 | NUR ---
AWAKE ALERT NO SOB OR PAIN AT THIS TIME REFUSED TO EAT STATE LATER BUT TAKE PO MEDICINE ON FALL AND SEIZURE AND FALL PRECAUTION CALL BUSCH IN REACH AND BED ALARM ON
[2016-12-27] MEDS: MULTIVITAMINS,THERAPEUTIC TABLET PO SCH (09:00)
[2016-12-27] MEDS: LEVOTHYROXINE SODIUM 125 MCG TABLET PO SCH (09:01)
[2016-12-27 09:29] LABS: ALBUMIN 3.5 g/dL (3.4-5.0); BILIRUBIN,TOTAL 0.4 mg/dL (0.2-1.0); CALCIUM 8.7 mg/dL (8.5-10.1); MAGNESIUM 1.9 mg/dL (1.8-2.4); PHOSPHOROUS 3.5 mg/dL (2.5-4.9); POTASSIUM 3.8 mmol/L (3.5-5.1); TOTAL PROTEIN, SERUM 7.2 g/dL (6.4-8.2)
[2016-12-27] MEDS: OXCARBAZEPINE 300 MG TABLET PO SCH (09:40)
[2016-12-27] MEDS: PANTOPRAZOLE SODIUM 40 MG TABLET.DR PO SCH (09:40)
[2016-12-27] MEDS: LEVETIRACETAM 250 MG TABLET PO SCH (09:41)
[2016-12-27 09:52] LABS: BASOPHILS % (AUTO) 0.2 % (0.0-2.0); EOSINOPHILS # (AUTO) 0.2 K/uL (0.0-0.7); EOSINOPHILS % (AUTO) 4.8 % (0.0-7.0); HEMATOCRIT 39.7 % (37.0-47.0); HEMOGLOBIN 13.4 g/dL (12.0-16.0); LYMPHOCYTES # (AUTO) 1.2 K/uL (0.8-4.8); LYMPHOCYTES % (AUTO) 26.3 % (20.5-51.5); MEAN CORPUSCULAR HGB CONC 34 g/dL (32.0-37.0); MEAN CORPUSCULAR VOLUME 83.2 fL (81.0-99.0); MONOCYTES # (AUTO) 0.4 K/uL (0.1-1.30); MONOCYTES % (AUTO) 8.9 % (0.0-11.0); NEUTROPHILS # (AUTO) 2.8 K/uL (1.8-8.9); NEUTROPHILS % (AUTO) 59.8 % (38.5-71.5); PLATELET COUNT (AUTO) 311 K/uL (150-450); RED BLOOD CELL COUNT(AUTO) 4.77 MIL/uL (4.20-5.40); RED CELL DISTRIBUTION WIDTH 13.9 % (11.5-14.5); WHITE BLOOD COUNT (AUTO) 4.6 K/uL (4.0-11.2)
--- NOTE | 2016-12-27 11:00 | NUR ---
D/C HOME WITH HOME HEALTH NURSE AND PT WILL F/U ,NEED TO CALL PMD AND CONTINUE HOME MEDICINE INSTRUCTION EXPLAINED TO [PATIENT VERBALIZES UNDERSTAND BUT STATE SHE DOES NOT READY TO GO HOME YET STATE WILL GO TO ER AGAIN AFTER D/C TODAY LINOLEUM LAYER HELPER FOR Rojelio DAVIS A , CHARGE NURSE LUKE AND CURB BUILDER MELVI WAS INFORM OF SITUATION HL WAS DISCONTINUE PRIOR D/C TODAY
[2016-12-27 11:10] VITALS: BP 116/70
--- NOTE | 2016-12-27 12:00 | NUR ---
TAKE PATIENT DOWN VIA W/C CONDITION STABLE REFUSED TO SIGNS D/C SHEET AND PHAMACY FOR HOME MED INSTRUCTION
== END 2016-12-27 14:20 | disposition home health service (06) | DRG 203 ==
LOC: ER 10:19 → TELE 14:39 → MED 12-26 20:53
PROVIDERS: ADMIT Internal Medicine; ATTEND Internal Medicine
DX: M94.0 Chondrocostal junction syndrome [Tietze] (principal); E22.2 Syndrome of inappropriate secretion of antidiuretic hormone; E88.09 Other disorders of plasma-protein metabolism, not elsewhere classified; I36.1 Nonrheumatic tricuspid (valve) insufficiency; F41.9 Anxiety disorder, unspecified; E03.9 Hypothyroidism, unspecified; G40.909 Epilepsy, unspecified, not intractable, without status epilepticus; Z79.899 Other long term (current) drug therapy; G43.909 Migraine, unspecified, not intractable, without status migrainosus; K21.9 Gastro-esophageal reflux disease without esophagitis; E78.5 Hyperlipidemia, unspecified; Z87.01 Personal history of pneumonia (recurrent); Z87.891 Personal history of nicotine dependence; Z91.81 History of falling; T42.1X5A Adverse effect of iminostilbenes, initial encounter; Y92.009 Unspecified place in unspecified non-institutional (private) residence as the place of occurrence of the external cause; R53.1 Weakness; I34.0 Nonrheumatic mitral (valve) insufficiency; I37.1 Nonrheumatic pulmonary valve insufficiency; Z76.5 Malingerer [conscious simulation]
CPT/HCPCS: 36415; 70030-TC; 71010; 83735; 84100; 84443; 85025; 85730; 93005; 93307; A4663; J2405; J7030; J8597

== ENCOUNTER 2017-08-04 15:20 | Emergency (ER) | payer OTHER ==
[~2017-08-04] VITALS: Ht 152.4 cm; Wt 56.7 kg
[~2017-08-04 15:20] MED LIST changes: -IBUP-1481 PO; +LEVE250T2 PO; -LEVE500T9 PO; -MAGN400O4 PO; -Zolpidem Tartrate PO
--- NOTE | 2017-08-04 16:20 | NUR ---
Pt is very confrontational with ER staff, lab and x-ray.
[2017-08-04 16:49] LABS: BASOPHILS # (AUTO) 0.1 K/uL (0.0-8.0); BASOPHILS % (AUTO) 0.7 % (0.0-2.0); EOSINOPHILS # (AUTO) 0.1 K/uL (0.0-0.7); EOSINOPHILS % (AUTO) 1.9 % (0.0-7.0); HEMATOCRIT 41.3 % (37-47); HEMOGLOBIN 13.2 G/DL (12.0-16.0); LYMPHOCYTES # (AUTO) 2.1 K/UL (0.8-4.8); LYMPHOCYTES % (AUTO) 29.5 % (20.5-51.5); MEAN CORPUSCULAR HEMOGLOBIN 26.5 UUG (27.0-31.0); MEAN CORPUSCULAR HGB CONC 32 g/dL (32.0-37.0); MEAN CORPUSCULAR VOLUME 82.8 FL (81.0-99.0); MONOCYTES # (AUTO) 0.5 K/UL (0.1-1.30); MONOCYTES % (AUTO) 6.5 % (0.0-11.0); NEUTROPHILS # (AUTO) 4.5 K/UL (1.8-8.9); NEUTROPHILS % (AUTO) 61.4 % (38.5-71.5); PLATELET COUNT (AUTO) 391 K/UL (150-450); RED BLOOD CELL COUNT(AUTO) 4.99 MIL/UL (4.2-5.4); WHITE BLOOD COUNT (AUTO) 7.3 K/UL (4.0-11.2)
[2017-08-04 16:54] LABS: CREATININE 0.9 mg/dL (0.6-1.3); POTASSIUM 3.8 mmol/L (3.5-5.1)
[2017-08-04 17:07] LABS: BILIRUBIN,DIRECT 0.1 mg/dL (0.0-0.2); BILIRUBIN,TOTAL 0.4 mg/dL (0.2-1.0); TOTAL PROTEIN, SERUM 7.9 g/dL (6.4-8.2)
--- NOTE | 2017-08-04 17:41 | NUR ---
Unable to assess pain level and v/s at d/c, see previous note.
--- NOTE | 2017-08-04 17:41 | NUR ---
Pt remains confrontational at d/c. Pt given extensive ACI by myself and spoke with Dr. Mills multiple times before d/c. Patient discharged to home in stable conditon.Written and verbal after care instructions given. Patient verbalizes understanding of instructions. Stressed follow up with pmd or return to ER for worsening s/s. Pt was given copies of her lab/x-ray reports and EKG.
== END 2017-08-04 17:47 | disposition home or self-care (01) ==
LOC: ER 15:21
DX: R07.89 Other chest pain (principal); G40.909 Epilepsy, unspecified, not intractable, without status epilepticus; Z88.0 Allergy status to penicillin; K21.9 Gastro-esophageal reflux disease without esophagitis; E03.9 Hypothyroidism, unspecified; Z88.1 Allergy status to other antibiotic agents; Z88.2 Allergy status to sulfonamides; Z88.6 Allergy status to analgesic agent
CPT/HCPCS: 36415; 71010; 80048; 80076; 83880; 84484; 85025; 85730; 93005; 99285; A4663; 70030-TC